=== PATIENT | male | born 1955 | race Caucasian/White ===

== ENCOUNTER 2016-10-05 11:18 | Inpatient (IN) | payer MEDICARE ==
[~2016-10-05] VITALS: Ht 188 cm; Wt 94.6 kg
[2016-10-05 12:00] LABS: BASO # 0.1 (0.0-0.2); BASO % 0.8 % (0.0-2.0); EOS # 0.1 (0.0-0.7); EOS % 0.5 % (0-4.0); GRAN # 8.2 (1.4-6.5); GRAN % 75.3 % (42.2-75.2); HEMATOCRIT 40.4 % (42.0-52.0); HEMOGLOBIN 14.2 g/dl (13.5-18.0); LYMPH # 1.1 (1.2-3.4); LYMPH % 10.2 % (20.0-51.0); MEAN CELL VOLUME 99 fl (80.0-100.0); MEAN CORPUSCULAR HEMOGLOBIN 35 pg (27.0-31.0); MEAN CORPUSCULAR HGB CONC 35 g/dl (33.0-37.0); MEAN PLATELET VOLUME 9.3 fl (7.4-10.4); MONO # 1.4 (0.1-0.6); PLATELET COUNT 228 K/mm3 (130-400); RED BLOOD COUNT 4.07 M/mm3 (4.20-5.60); REDCELL DISTRIBUTION WIDTH-CV 13.9 % (11.5-14.5); WHITE BLOOD COUNT 10.9 K/mm3 (4.8-10.8)
[2016-10-05 12:09] LABS: ADJUSTED CALCIUM 9.5 mg/dL (8.4-10.2); ALANINE AMINOTRANSFERASE 57 U/L (21-72); ALBUMIN 4.6 gm/dL (3.5-5.0); ALKALINE PHOSPHATASE 76 U/L (50-136); ANION GAP 13 mmol/L (7-16); BILIRUBIN,TOTAL 1.3 mg/dL (0.0-1.0); BLOOD UREA NITROGEN 24 mg/dL (9-20); CARBON DIOXIDE 24 mmol/L (22-30); CHLORIDE 98 mmol/L (98-107); CREATININE, serum 1.03 mg/dL (0.66-1.25); GLUCOSE 129 mg/dL (74-106); POTASSIUM 3.6 mmol/L (3.4-5.0); SODIUM 135 mmol/L (137-145)
[2016-10-05 14:42] VITALS: BP 120/73; PULSE 81; TEMP 97.5
[2016-10-05 16:19] VITALS: BP 133/68; PULSE 90; TEMP 97.9
[2016-10-05 16:32] LABS: INR 1.1 (0.8-3.0)
[2016-10-05 16:34] LABS: PARTIAL THROMBOPLASTIN TIME 31.8 SECONDS (26.0-37.0)
[2016-10-05 17:09] LABS: PHOSPHOROUS 3.3 mg/dL (2.5-4.5)
[2016-10-05 18:10] VITALS: BP 112/72; PULSE 69; TEMP 98.5
[2016-10-05 19:50] VITALS: BP 120/54; PULSE 68; TEMP 97.3
[2016-10-05 22:06] VITALS: BP 120/73; PULSE 69; TEMP 97
[2016-10-06] VITALS (10 sets, daily range): BP systolic 108–131; BP diastolic 61–74; PULSE 66–79; TEMP 96.9–98.6
[2016-10-06 07:05] LABS: BASO # 0.1 (0.0-0.2); BASO % 1.3 % (0.0-2.0); EOS # 0.2 (0.0-0.7); EOS % 2.5 % (0-4.0); GRAN # 5.5 (1.4-6.5); GRAN % 71.9 % (42.2-75.2); HEMATOCRIT 38.1 % (42.0-52.0); HEMOGLOBIN 13.2 g/dl (13.5-18.0); LYMPH % 13.6 % (20.0-51.0); MEAN CELL VOLUME 101 fl (80.0-100.0); MEAN CORPUSCULAR HEMOGLOBIN 35 pg (27.0-31.0); MEAN CORPUSCULAR HGB CONC 35 g/dl (33.0-37.0); MEAN PLATELET VOLUME 9.3 fl (7.4-10.4); MONO # 0.8 (0.1-0.6); MONO % 10.2 % (1.7-9.3); PLATELET COUNT 217 K/mm3 (130-400); RED BLOOD COUNT 3.76 M/mm3 (4.20-5.60); REDCELL DISTRIBUTION WIDTH-CV 14.1 % (11.5-14.5); WHITE BLOOD COUNT 7.7 K/mm3 (4.8-10.8)
[2016-10-06 07:18] LABS: ADJUSTED CALCIUM 8.7 mg/dL (8.4-10.2); ALBUMIN 3.5 gm/dL (3.5-5.0); CALCIUM 8.3 mg/dL (8.4-10.2); CREATININE, serum 0.79 mg/dL (0.66-1.25); MAGNESIUM 2.2 mg/dL (1.6-2.3); PHOSPHOROUS 2.7 mg/dL (2.5-4.5); POTASSIUM 3.5 mmol/L (3.4-5.0); TOTAL PROTEIN 6.5 gm/dL (6.4-8.2)
[2016-10-06 10:10] LABS: PH 5 (5-8); SQUAMOUS EPITHELIAL None Seen /hpf; URINE APPEARANCE Hazy; URINE BACTERIA Rare /hpf; URINE BILIRUBIN Negative (NEGATIVE); URINE BLOOD Negative (NEGATIVE); URINE COLOR Yellow; URINE GLUCOSE Negative (NEGATIVE); URINE KETONE 1+ (NEGATIVE); URINE RBC 0-2 /hpf; URINE UROBILINOGEN Negative (NEGATIVE)
[2016-10-06 10:14] LABS: AMPHETAMINE URINE POSITIVE; BARBITURATES URINE NEGATIVE; BENZODIAZEPINES URINE POSITIVE; BUPRENORPHINE URINE NEGATIVE; METHADONE URINE NEGATIVE; OPIATES URINE NEGATIVE; OXYCODONE URINE NEGATIVE; PHENCYCLIDINE URINE NEGATIVE; PROPOXYPHENE URINE NEGATIVE; THC CANNABINOIDS URINE NEGATIVE
[2016-10-06 10:27] LABS: PSA-TOTAL 0.86 ng/mL (0-4)
[2016-10-07] VITALS (11 sets, daily range): BP systolic 92–133; BP diastolic 45–85; PULSE 63–84; TEMP 97.4–98.8
[2016-10-07 07:59] LABS: ADJUSTED CALCIUM 8.7 mg/dL (8.4-10.2); ALBUMIN 3.1 gm/dL (3.5-5.0); BILIRUBIN,TOTAL 0.4 mg/dL (0.0-1.0); CREATININE, serum 0.79 mg/dL (0.66-1.25); MAGNESIUM 1.9 mg/dL (1.6-2.3); PHOSPHOROUS 2.7 mg/dL (2.5-4.5); POTASSIUM 3.4 mmol/L (3.4-5.0); TOTAL PROTEIN 5.9 gm/dL (6.4-8.2)
[2016-10-08 01:57] VITALS: BP 124/78; PULSE 58; TEMP 97
[2016-10-08 04:33] VITALS: BP 122/67; PULSE 61; TEMP 97
[2016-10-08 05:40] VITALS: BP 124/79; PULSE 58; TEMP 97.1
[2016-10-08 08:04] VITALS: BP 142/91; PULSE 67; TEMP 98.2
[2016-10-08 10:00] VITALS: BP 148/90; PULSE 69; TEMP 98.4
[2016-10-08 11:19] VITALS: BP 140/79; PULSE 73; TEMP 98.4
[2016-10-08] MEDS ORDERED: SEROQUEL 1100 MG/TAB PO (13:06)
[2016-10-08] MEDS ORDERED: DUO-KAPS1 CAP PO (13:06)
== END 2016-10-08 16:29 | disposition home or self-care (01) | DRG 897 ==
LOC: COL.ER 11:18 → MEDICAL 13:29
PROVIDERS: Emergency Medicine; Physician Assistant
DX: F10.231 Alcohol dependence with withdrawal delirium (principal); R33.9 Retention of urine, unspecified; F15.151 Other stimulant abuse with stimulant-induced psychotic disorder with hallucinations; J44.9 Chronic obstructive pulmonary disease, unspecified
CPT/HCPCS: 90791-AI; 99223-AI; 99232-AI; 99233-AI; 99239; G0103; J1650; J2060; J2765; J3411; J3475; J7030